=== PATIENT | male | born 1945 | race Caucasian/White ===

== ENCOUNTER 2018-02-13 04:17 | Inpatient (IN) | payer MEDICARE, OTHER ==
[~2018-02-13] VITALS: Ht 180.3 cm; Wt 65.8 kg
[2018-02-13] MEDS ORDERED: GABA-531 PO (04:26)
[2018-02-13] MEDS ORDERED: ALLO100T PO (04:26)
[2018-02-13] MEDS ORDERED: BISA5TAB12 PO (04:26)
[2018-02-13] MEDS ORDERED: TIOT185 IH (04:26)
[2018-02-13] MEDS ORDERED: SENN-175 PO (04:26)
[2018-02-13] MEDS ORDERED: MULT1CAP32 PO (04:26)
[2018-02-13] MEDS ORDERED: OXYC10TA93 PO (04:26)
[2018-02-13] MEDS ORDERED: ELVI1TAB3 PO (04:26)
[2018-02-13] MEDS ORDERED: DSS100 PO (04:26)
[2018-02-13] MEDS ORDERED: DULO60CA44 PO (04:26)
[2018-02-13] MEDS ORDERED: ACET-784 PO (04:26)
[2018-02-13 04:44] LABS: ABG A-A DIFF O2 622.2 mmHg (10-20.0); ABG BASE EXCESS -1.8 mmol/L (-2.0-3.0); ABG CARBOXYHEMOGLOBIN 1.5 % (0.0-1.5); ABG HCO3 23.2 mmol/L (22.0-26.0); ABG METHEMOGLOBIN 0.1 % (0.0-1.5); ABG OXYGEN SATURATION 89.1 % (95.0-98.0); ABG OXYHEMOGLOBIN 87.7 % (94.0-100.0); ABG PCO2 36 mmHg (35-45); ABG PH 7.415 (7.35-7.450); ABG TOTAL HEMOGLOBIN 16.3 G/dL (12.0-18.0); PO2, ARTERIAL BG 54.5 mmHg (75.0-83.0); SOURCE, BLOOD GAS ARTERIAL; TEMPERATURE, FAHRENHEIT, BG 98.6 FAHREN (96.0-98.6)
[2018-02-13 04:45] LABS: O2 DEVICE,BLOOD GAS BIPAP (ROOM AIR); SITE, BLOOD GAS LFT RADIAL
[2018-02-13] MEDS ORDERED: CefTRIAXone SODIUM 1 GM in DEXTROSE 5%-WATER 10 ML IV ONE (05:00)
[2018-02-13] MEDS ORDERED: SODIUM CHLORIDE 0.9% 2,000 ML IV ONE (05:00)
[2018-02-13 05:02] LABS: HEMATOCRIT 46.6 % (41-53); MEAN CORPUSCULAR HGB CONC 34.3 G/dL (31.0-37.0); MEAN CORPUSCULAR VOLUME 99 fL (80-100); PLATELET COUNT (AUTO) 218 K/uL (150-450); RED BLOOD CELL COUNT(AUTO) 4.71 MIL/uL (4.50-5.90)
[2018-02-13 05:28] LABS: CALCIUM, TOTAL 10.3 mg/dL (8.8-10.5); CREATININE 1.46 mg/dL (0.60-1.30); POTASSIUM 5.3 mmol/L (3.5-5.1)
[2018-02-13 05:38] LABS: ALBUMIN 2.4 g/dL (3.4-5.0); BILIRUBIN,TOTAL 0.7 mg/dL (0.1-1.0); TOTAL PROTEIN, SERUM 8.5 g/dL (6.4-8.2)
[2018-02-13] MEDS ORDERED: LEVOFLOXACIN 500 MG/D5% WATER 100 ML IV ONE (05:45)
[2018-02-13] MEDS ORDERED: IPRATROPIUM BROMIDE 0.5 MG/2.5 ML NEB SOLUTION NEB ONE (05:45)
[2018-02-13] MEDS ORDERED: ALBUTEROL SULFATE 2.5 MG/0.5 ML NEB SOLUTION NEB ONE (05:45)
[2018-02-13 05:50] LABS: BAND NEUTROPHILS % (MANUAL) 72 % (1-5); LYMPHOCYTES % (MANUAL) 9 % (22-44); MONOCYTES % (MANUAL) 13 % (2-9); SEGMENTED NEUTROPHILS % 6 % (40-70)
[2018-02-13] MEDS ORDERED: ONDANSETRON HCL 4 MG/2 ML VIAL IVP PRN (06:15)
[2018-02-13] MEDS ORDERED: 0.9% SODIUM CHLORIDE 10 ML SYRINGE IVP PRN (06:15)
[2018-02-13] MEDS ORDERED: VANCOMYCIN HCL 1 GM/D5% WATER 200 ML IV ONE (06:15)
[2018-02-13] MEDS ORDERED: SODIUM CHLORIDE 0.45% 1,000 ML IV ONE (06:15)
[2018-02-13] MEDS ORDERED: ACETAMINOPHEN 325 MG TABLET PO PRN (06:15)
[2018-02-13] MEDS ORDERED: MIDAZOLAM HCL 5 MG/ML VIAL ONE (06:22)
[2018-02-13] MEDS ORDERED: PROPOFOL 1000 MG/ISO-OSM 100 ML IV ONE (06:31)
[2018-02-13 06:40] LABS: LACTIC ACID 7.7 mmol/L (0.4-2.0)
[2018-02-13] MEDS ORDERED: SODIUM CHLORIDE 0.9% 1,000 ML IV ONE ×2 (06:45→08:15)
[2018-02-13] MEDS: IPRATROPIUM BROMIDE 0.5 MG/2.5 ML NEB SOLUTION NEB SCH ×3 (07:00→16:01)
[2018-02-13] MEDS: ALBUTEROL SULFATE 2.5 MG/0.5 ML NEB SOLUTION NEB SCH ×3 (07:00→16:01)
[2018-02-13 07:43] LABS: INFLUENZA TYPE A NEGATIVE FOR TYPE A (NEGATIVE); INFLUENZA TYPE B NEGATIVE FOR TYPE B (NEGATIVE)
[2018-02-13 07:56] LABS: ABG A-A DIFF O2 524.3 mmHg (10-20.0); ABG BASE EXCESS -1.4 mmol/L (-2.0-3.0); ABG CARBOXYHEMOGLOBIN 1.2 % (0.0-1.5); ABG HCO3 22.5 mmol/L (22.0-26.0); ABG METHEMOGLOBIN 0.2 % (0.0-1.5); ABG OXYGEN CONTENT 20.6 mL/dL (15.0-23.0); ABG OXYGEN SATURATION 98.3 % (95.0-98.0); ABG OXYHEMOGLOBIN 96.9 % (94.0-100.0); ABG PCO2 57 mmHg (35-45); PO2, ARTERIAL BG 131.3 mmHg (75.0-83.0); SOURCE, BLOOD GAS ARTERIAL
[2018-02-13 08:00] VITALS: BP 146/82
[2018-02-13 08:08] LABS: O2 DEVICE,BLOOD GAS VENTILATOR (ROOM AIR); PEEP,BG 5 cm H2O; SITE, BLOOD GAS RT RADIAL; VT, ABG 500 ml
[2018-02-13] MEDS ORDERED: *CLINICAL-LEVOFLOXACIN IVPB DOSING CLINICAL ONE (08:15)
[2018-02-13] MEDS ORDERED: BISACODYL 10 MG RECTAL RECTAL SUPPOSITORY PR PRN (08:15)
[2018-02-13] MEDS: DOCUSATE SODIUM 100 MG CAPSULE PO SCH ×2 (08:40→20:04)
[2018-02-13] MEDS ORDERED: HEPARIN SODIUM,PORCINE 5,000 UNITS/ML VIAL SQ SCH (09:00)
[2018-02-13] MEDS: PANTOPRAZOLE SODIUM 40 MG/VIAL IVP SCH (09:01)
[2018-02-13] MEDS: ACETAMINOPHEN 325 MG TABLET PO PRN ×3 (09:02→20:04)
[2018-02-13] MEDS ORDERED: PHENYLEPHRINE 200 MG/D5%-WATER 250 ML IV PRN (10:07)
[2018-02-13 11:26] LABS: ABG A-A DIFF O2 291.5 mmHg (10-20.0); ABG BASE EXCESS -1.6 mmol/L (-2.0-3.0); ABG HCO3 23.3 mmol/L (22.0-26.0); ABG METHEMOGLOBIN 0.1 % (0.0-1.5); ABG OXYGEN SATURATION 91.9 % (95.0-98.0); ABG OXYHEMOGLOBIN 90.9 % (94.0-100.0); ABG PCO2 37 mmHg (35-45); ABG PH 7.408 (7.35-7.450); ABG TOTAL HEMOGLOBIN 14.1 G/dL (12.0-18.0); SOURCE, BLOOD GAS ARTERIAL; TEMPERATURE, FAHRENHEIT, BG 98.6 FAHREN (96.0-98.6)
[2018-02-13 11:30] LABS: O2 DEVICE,BLOOD GAS VENTILATOR (ROOM AIR); PEEP,BG 5 cm H2O; SITE, BLOOD GAS RT RADIAL; VT, ABG 550 ml
[2018-02-13 12:00] VITALS: BP 96/56
[2018-02-13 12:18] LABS: INR 1.1 (0.9-1.1); PROTHROMBIN TIME 11.6 SEC (9.4-11.6)
[2018-02-13] MEDS ORDERED: INFLUENZA VIRUS VACCINE QVS 2017-18 (3YR+)/PF 60 MCG/0.5 ML SYRINGE IM ONE (15:45)
[2018-02-13 16:00] VITALS: BP 109/59
[2018-02-13] MEDS ORDERED: ETOMIDATE 2 MG/ML 10 ML VIAL IV ONE (16:59)
[2018-02-13] MEDS ORDERED: VECURONIUM BROMIDE 10 MG/VIAL IV ONE (16:59)
[2018-02-13] MEDS: PROPOFOL 1000 MG/ISO-OSM 100 ML IV PRN (17:02)
[2018-02-13] MEDS ORDERED: HEPARIN SODIUM,PORCINE 5,000 UNITS/ML VIAL IVP PRN (17:30)
[2018-02-13 18:06] LABS: HEMATOCRIT 39.5 % (41-53); HEMOGLOBIN 13.7 g/dL (13.5-17.5); MEAN CORPUSCULAR HEMOGLOBIN 34.1 pg (26.0-34.0); MEAN CORPUSCULAR HGB CONC 34.8 G/dL (31.0-37.0); MEAN CORPUSCULAR VOLUME 98 fL (80-100); PLATELET COUNT (AUTO) 199 K/uL (150-450); RED BLOOD CELL COUNT(AUTO) 4.03 MIL/uL (4.50-5.90)
[2018-02-13 18:11] LABS: INR 1.2 (0.9-1.1)
[2018-02-13 18:31] LABS: BAND NEUTROPHILS % (MANUAL) 73 % (1-5); LYMPHOCYTES % (MANUAL) 12 % (22-44); MONOCYTES % (MANUAL) 10 % (2-9); SEGMENTED NEUTROPHILS % 5 % (40-70)
[2018-02-13] MEDS: HEPARIN SODIUM 25000 UNITS/D5W 250 ML IV PRN (18:43)
[2018-02-13 20:00] VITALS: BP 90/61
[2018-02-13] MEDS: SODIUM CHLORIDE 0.9% 1,000 ML IV SCH (20:04)
[2018-02-14] VITALS (16 sets, daily range): BP systolic 84–126; BP diastolic 61–79
[2018-02-14] MEDS: HEPARIN SODIUM,PORCINE 5,000 UNITS/ML VIAL IVP PRN (01:51)
[2018-02-14 02:48] LABS: OCCULT BLOOD,GASTRIC FLUID NEGATIVE (NEGATIVE)
[2018-02-14] MEDS: PROPOFOL 1000 MG/ISO-OSM 100 ML IV PRN ×3 (04:02→15:31)
[2018-02-14] MEDS: CEFEPIME HCL 2 GM in DEXTROSE 5%-WATER 20 ML IV SCH (04:03)
[2018-02-14] MEDS ORDERED: SODIUM CHLORIDE 0.9% 250 ML IV ONE ×2 (04:10→11:11)
[2018-02-14] MEDS: SODIUM CHLORIDE 0.9% 1,000 ML IV SCH ×3 (05:09→22:35)
[2018-02-14] MEDS: LEVOFLOXACIN 500 MG/D5% WATER 100 ML IV SCH (05:10)
[2018-02-14 05:20] LABS: BASOPHILS % (AUTO) 0.1 % (0.0-2.0); EOSINOPHILS % (AUTO) 0.2 % (1.0-6.0); HEMATOCRIT 37.1 % (41-53); HEMOGLOBIN 12.6 g/dL (13.5-17.5); LYMPHOCYTES # (AUTO) 0.8 K/uL (1.0-4.8); LYMPHOCYTES % (AUTO) 6.6 % (22.0-44.0); MEAN CORPUSCULAR HEMOGLOBIN 33.6 pg (26.0-34.0); MEAN CORPUSCULAR VOLUME 99 fL (80-100); MONOCYTES # (AUTO) 0.4 K/uL (0.1-1.0); MONOCYTES % (AUTO) 3.6 % (2.0-9.0); NEUTROPHILS # (AUTO) 10.6 K/uL (1.8-7.7); PLATELET COUNT (AUTO) 188 K/uL (150-450); RED BLOOD CELL COUNT(AUTO) 3.75 MIL/uL (4.50-5.90); RED CELL DISTRIBUTION WIDTH 14.8 % (11.5-14.5)
[2018-02-14 05:58] LABS: ALANINE AMINOTRANSFERASE 27 U/L (12-78); ALBUMIN 1.6 g/dL (3.4-5.0); ALKALINE PHOSPHATASE 73 U/L (46-116); ANION GAP 9 mmol/L (8-16); ASPARTATE AMINOTRANSFERASE 15 U/L (15-37); BILIRUBIN,TOTAL 0.4 mg/dL (0.1-1.0); CALCIUM, TOTAL 8.5 mg/dL (8.8-10.5); CARBON DIOXIDE 24 mmol/L (22-29); CHLORIDE 104 mmol/L (98-107); GLOMERULAR FILTR. RATE CALC > 60 mL/min (>60); GLUCOSE,RANDOM 102 mg/dL (70-110); PHOSPHORUS 3.3 mg/dL (2.5-4.9); POTASSIUM 3.7 mmol/L (3.5-5.1); SODIUM SERUM 137 mmol/L (136-145); THYROID STIMULATING HORMONE 2.63 uIU/mL (0.36-3.74); TOTAL PROTEIN, SERUM 6.1 g/dL (6.4-8.2); UREA NITROGEN, BLOOD 25 mg/dL (7-18)
[2018-02-14 06:05] LABS: NEUTROPHILS % (AUTO) 89.5 % (40.0-70.0)
[2018-02-14 07:22] LABS: B-TYPE NATRIURETIC PEPTIDE 24 pg/mL (0-100)
[2018-02-14 08:38] LABS: ABG A-A DIFF O2 289.6 mmHg (10-20.0); ABG BASE EXCESS -2.4 mmol/L (-2.0-3.0); ABG CARBOXYHEMOGLOBIN 0.8 % (0.0-1.5); ABG HCO3 23.2 mmol/L (22.0-26.0); ABG METHEMOGLOBIN 0.1 % (0.0-1.5); ABG OXYGEN CONTENT 15.9 mL/dL (15.0-23.0); ABG OXYGEN SATURATION 95.2 % (95.0-98.0); ABG OXYHEMOGLOBIN 94.3 % (94.0-100.0); ABG PCO2 30 mmHg (35-45); ABG PH 7.472 (7.35-7.450); PO2, ARTERIAL BG 69.5 mmHg (75.0-83.0); SOURCE, BLOOD GAS ARTERIAL; TEMPERATURE, FAHRENHEIT, BG 98.6 FAHREN (96.0-98.6)
[2018-02-14 08:40] LABS: SITE, BLOOD GAS RT RADIAL
[2018-02-14 08:41] LABS: O2 DEVICE,BLOOD GAS VENTILATOR (ROOM AIR); PEEP,BG 5 cm H2O; VT, ABG 550 ml
[2018-02-14] MEDS: DOCUSATE SODIUM 100 MG CAPSULE PO SCH ×2 (09:00→20:10)
[2018-02-14] MEDS: PANTOPRAZOLE SODIUM 40 MG/VIAL IVP SCH (09:02)
[2018-02-14] MEDS: ACETAMINOPHEN 325 MG TABLET PO PRN ×3 (09:02→20:10)
[2018-02-14] MEDS: ELVITEG/COB/EMTRI/TENOF ALAFEN 150-150-200-10MG TABLET PO SCH (09:02)
[2018-02-14] MEDS: VANCOMYCIN HCL 1 GM/D5% WATER 200 ML IV SCH (09:02)
[2018-02-14] MEDS: HEPARIN SODIUM 25000 UNITS/D5W 250 ML IV PRN (12:44)
[2018-02-14] MEDS ORDERED: MIDAZOLAM HCL 2 MG/2 ML VIAL ONE (15:19)
[2018-02-14] MEDS ORDERED: FentaNYL CITRATE-PF 100 MCG/2 ML VIAL ONE (15:19)
[2018-02-14] MEDS ORDERED: HEPARIN SODIUM,PORCINE 1,000 UNITS/ML 10 ML VIAL ONE (15:19)
[2018-02-14] MEDS ORDERED: HEPARIN SODIUM 1000 UNITS/NS 500 ML ONE (15:19)
[2018-02-14] MEDS ORDERED: SODIUM CHLORIDE 0.9% 500 ML IV ONE (15:22)
[2018-02-14] MEDS ORDERED: ALTEPLASE 2 MG/VIAL IVCATH ONE (16:00)
[2018-02-14] MEDS ORDERED: IODIXANOL 320 MG/ML 100 ML VIAL ONE (16:59)
[2018-02-14] MEDS ORDERED: ALTEPLASE IV SCH ×5 (18:00→23:15)
[2018-02-14] MEDS ORDERED: SODIUM CHLORIDE 0.9% IV SCH ×5 (18:00→23:15)
[2018-02-14] MEDS: SODIUM CHLORIDE 0.9% 500 ML IV SCH (19:30)
[2018-02-15] VITALS (12 sets, daily range): BP systolic 83–117; BP diastolic 62–87
[2018-02-15] MEDS: SODIUM CHLORIDE 0.9% IV SCH ×8 (03:19→22:55)
[2018-02-15] MEDS: PROPOFOL 1000 MG/ISO-OSM 100 ML IV PRN ×4 (03:19→22:59)
[2018-02-15] MEDS: ALTEPLASE IV SCH ×8 (03:19→22:55)
[2018-02-15] MEDS ORDERED: ALTEPLASE IV SCH (04:00)
[2018-02-15] MEDS ORDERED: SODIUM CHLORIDE 0.9% IV SCH (04:00)
[2018-02-15] MEDS: SODIUM CHLORIDE 0.9% 1,000 ML IV SCH ×3 (05:27→22:56)
[2018-02-15] MEDS: CEFEPIME HCL 2 GM in DEXTROSE 5%-WATER 20 ML IV SCH (05:27)
[2018-02-15] MEDS: LEVOFLOXACIN 500 MG/D5% WATER 100 ML IV SCH (05:28)
[2018-02-15 05:57] LABS: ANION GAP 11 mmol/L (8-16); CALCIUM, TOTAL 8.5 mg/dL (8.8-10.5); CARBON DIOXIDE 22 mmol/L (22-29); CHLORIDE 108 mmol/L (98-107); CREATININE 0.72 mg/dL (0.60-1.30); GLOMERULAR FILTR. RATE CALC > 60 mL/min (>60); GLUCOSE,RANDOM 67 mg/dL (70-110); PHOSPHORUS 3.2 mg/dL (2.5-4.9); SODIUM SERUM 141 mmol/L (136-145); UREA NITROGEN, BLOOD 16 mg/dL (7-18)
[2018-02-15] MEDS: HEPARIN SODIUM 25000 UNITS/D5W 250 ML IV PRN ×2 (06:26→22:55)
[2018-02-15] MEDS: HEPARIN SODIUM,PORCINE 5,000 UNITS/ML VIAL IVP PRN (06:26)
[2018-02-15] MEDS: ELVITEG/COB/EMTRI/TENOF ALAFEN 150-150-200-10MG TABLET PO SCH (08:00)
[2018-02-15] MEDS: SODIUM CHLORIDE 0.9% 500 ML IV SCH (08:12)
[2018-02-15] MEDS: VANCOMYCIN HCL 1 GM/D5% WATER 200 ML IV SCH (08:12)
[2018-02-15] MEDS: PANTOPRAZOLE SODIUM 40 MG/VIAL IVP SCH (08:14)
[2018-02-15] MEDS: DOCUSATE SODIUM 100 MG CAPSULE PO SCH ×2 (08:15→21:00)
[2018-02-15] MEDS: POTASSIUM CHL 10 MEQ/WATER 50 ML IV SCH ×3 (08:39→12:51)
[2018-02-15 09:00] LABS: ABG A-A DIFF O2 158.3 mmHg (10-20.0); ABG BASE EXCESS -4.3 mmol/L (-2.0-3.0); ABG HCO3 21.6 mmol/L (22.0-26.0); ABG OXYGEN CONTENT 15.7 mL/dL (15.0-23.0); ABG OXYGEN SATURATION 97.6 % (95.0-98.0); ABG OXYHEMOGLOBIN 96.6 % (94.0-100.0); ABG PCO2 31 mmHg (35-45); ABG TOTAL HEMOGLOBIN 11.5 G/dL (12.0-18.0); O2 DEVICE,BLOOD GAS VENTILATOR (ROOM AIR); PEEP,BG 5 cm H2O; PO2, ARTERIAL BG 92.2 mmHg (75.0-83.0); SITE, BLOOD GAS RT RADIAL; SOURCE, BLOOD GAS ARTERIAL; TEMPERATURE, FAHRENHEIT, BG 97.3 FAHREN (96.0-98.6); VT, ABG 500 ml
[2018-02-15 09:30] LABS: BASOPHILS % (AUTO) 0.4 % (0.0-2.0); EOSINOPHILS % (AUTO) 0.5 % (1.0-6.0); HEMATOCRIT 33.7 % (41-53); HEMOGLOBIN 11.1 g/dL (13.5-17.5); LYMPHOCYTES # (AUTO) 0.9 K/uL (1.0-4.8); LYMPHOCYTES % (AUTO) 8.1 % (22.0-44.0); MEAN CORPUSCULAR HEMOGLOBIN 33.1 pg (26.0-34.0); MEAN CORPUSCULAR HGB CONC 33.1 G/dL (31.0-37.0); MEAN CORPUSCULAR VOLUME 100 fL (80-100); MONOCYTES # (AUTO) 0.5 K/uL (0.1-1.0); MONOCYTES % (AUTO) 4.3 % (2.0-9.0); NEUTROPHILS # (AUTO) 9.7 K/uL (1.8-7.7); PLATELET COUNT (AUTO) 190 K/uL (150-450); RED BLOOD CELL COUNT(AUTO) 3.37 MIL/uL (4.50-5.90); RED CELL DISTRIBUTION WIDTH 15.5 % (11.5-14.5)
[2018-02-15 10:03] LABS: NEUTROPHILS % (AUTO) 86.7 % (40.0-70.0)
[2018-02-15] MEDS ORDERED: FentaNYL CITRATE-PF 100 MCG/2 ML VIAL ONE (13:40)
[2018-02-15] MEDS ORDERED: MIDAZOLAM HCL 2 MG/2 ML VIAL ONE (13:40)
[2018-02-15 14:08] LABS: GLUCOSE,POINT OF CARE 90 MG/DL (70-110)
[2018-02-15] MEDS ORDERED: LIDOCAINE HCL/PF 1% 30 ML VIAL ONE ×2 (14:09→17:01)
[2018-02-15] MEDS ORDERED: IODIXANOL 320 MG/ML 100 ML VIAL ONE (14:09)
[2018-02-15] MEDS ORDERED: HEPARIN SODIUM 1000 UNITS/NS 500 ML ONE (14:10)
[2018-02-15] MEDS: CefTRIAXone SODIUM 2 GM in DEXTROSE 5%-WATER 20 ML IV SCH (18:17)
[2018-02-15 18:21] LABS: ANION GAP 11 mmol/L (8-16); CALCIUM, TOTAL 8.7 mg/dL (8.8-10.5); CARBON DIOXIDE 20 mmol/L (22-29); CHLORIDE 108 mmol/L (98-107); CREATININE 0.75 mg/dL (0.60-1.30); GLOMERULAR FILTR. RATE CALC > 60 mL/min (>60); GLUCOSE,RANDOM 73 mg/dL (70-110); POTASSIUM 3.7 mmol/L (3.5-5.1); SODIUM SERUM 139 mmol/L (136-145); UREA NITROGEN, BLOOD 12 mg/dL (7-18)
[2018-02-15 18:25] LABS: PHOSPHORUS 2.7 mg/dL (2.5-4.9)
[2018-02-16] VITALS (7 sets, daily range): BP systolic 96–117; BP diastolic 72–82
[2018-02-16] MEDS ORDERED: SODIUM CHLORIDE 0.9% 250 ML IV ONE (02:18)
[2018-02-16] MEDS: PROPOFOL 1000 MG/ISO-OSM 100 ML IV PRN ×3 (02:24→19:23)
[2018-02-16] MEDS: SODIUM CHLORIDE 0.9% IV SCH ×4 (02:24→11:03)
[2018-02-16] MEDS: ALTEPLASE IV SCH ×4 (02:24→11:03)
[2018-02-16] MEDS: SODIUM CHLORIDE 0.9% 500 ML IV SCH (03:15)
[2018-02-16 05:42] LABS: ANION GAP 12 mmol/L (8-16); CALCIUM, TOTAL 8.4 mg/dL (8.8-10.5); CARBON DIOXIDE 20 mmol/L (22-29); CHLORIDE 107 mmol/L (98-107); CREATININE 0.68 mg/dL (0.60-1.30); GLOMERULAR FILTR. RATE CALC > 60 mL/min (>60); GLUCOSE,RANDOM 64 mg/dL (70-110); POTASSIUM 3.1 mmol/L (3.5-5.1); SODIUM SERUM 139 mmol/L (136-145); UREA NITROGEN, BLOOD 9 mg/dL (7-18)
[2018-02-16] MEDS: SODIUM CHLORIDE 0.9% 1,000 ML IV SCH (06:21)
[2018-02-16] MEDS ORDERED: DEXTROSE 50%-WATER 25 GM/50 ML SYRINGE IVP ONE ×2 (07:45→08:00)
[2018-02-16 07:47] LABS: GLUCOSE,POINT OF CARE 54 MG/DL (70-110)
[2018-02-16] MEDS: ELVITEG/COB/EMTRI/TENOF ALAFEN 150-150-200-10MG TABLET PO SCH (08:00)
[2018-02-16] MEDS: DOCUSATE SODIUM 100 MG CAPSULE PO SCH ×2 (08:02→21:21)
[2018-02-16] MEDS: DEXTROSE 5%-0.45% SODIUM CHL 1,000 ML IV SCH ×2 (08:20→21:21)
[2018-02-16] MEDS: PANTOPRAZOLE SODIUM 40 MG/VIAL IVP SCH (08:20)
[2018-02-16] MEDS: HEPARIN SODIUM,PORCINE 5,000 UNITS/ML VIAL IVP PRN (08:21)
[2018-02-16 08:25] LABS: ABG A-A DIFF O2 151.9 mmHg (10-20.0); ABG BASE EXCESS -6.8 mmol/L (-2.0-3.0); ABG CARBOXYHEMOGLOBIN 0.5 % (0.0-1.5); ABG HCO3 20.1 mmol/L (22.0-26.0); ABG METHEMOGLOBIN 0.2 % (0.0-1.5); ABG OXYGEN CONTENT 16.5 mL/dL (15.0-23.0); ABG OXYGEN SATURATION 94.6 % (95.0-98.0); ABG OXYHEMOGLOBIN 93.9 % (94.0-100.0); ABG PCO2 26 mmHg (35-45); ABG PH 7.447 (7.35-7.450); ABG TOTAL HEMOGLOBIN 12.5 G/dL (12.0-18.0); O2 DEVICE,BLOOD GAS VENTILATOR (ROOM AIR); PEEP,BG 5 cm H2O; PO2, ARTERIAL BG 68.1 mmHg (75.0-83.0); SITE, BLOOD GAS RT RADIAL; SOURCE, BLOOD GAS ARTERIAL; TEMPERATURE, FAHRENHEIT, BG 98.2 FAHREN (96.0-98.6); VT, ABG 500 ml
[2018-02-16 08:27] LABS: GLUCOSE,POINT OF CARE 129 MG/DL (70-110)
[2018-02-16] MEDS ORDERED: POTASSIUM CHLORIDE 20 MEQ ER TABLET PO ONE (08:30)
[2018-02-16] MEDS ORDERED: POTASSIUM CHLORIDE 10% 40 MEQ/30 ML LIQUID UDCUP PO ONE (08:45)
[2018-02-16] MEDS: POTASSIUM CHL 10 MEQ/WATER 50 ML IV SCH ×2 (08:53→09:36)
[2018-02-16 14:38] LABS: FIBRINOGEN 589 mg/dL (200-400)
[2018-02-16] MEDS: HEPARIN SODIUM 25000 UNITS/D5W 250 ML IV PRN (14:48)
[2018-02-16] MEDS ORDERED: LIDOCAINE HCL/PF 2% 5 ML VIAL ONE (16:40)
[2018-02-16] MEDS ORDERED: LIDOCAINE HCL/PF 1% 30 ML VIAL ONE (16:41)
[2018-02-16] MEDS ORDERED: IODIXANOL 320 MG/ML 100 ML VIAL ONE ×2 (16:42→18:03)
[2018-02-16] MEDS ORDERED: HEPARIN SODIUM 1000 UNITS/NS 500 ML ONE (16:42)
[2018-02-16] MEDS: CefTRIAXone SODIUM 2 GM in DEXTROSE 5%-WATER 20 ML IV SCH (19:23)
[2018-02-17] VITALS (11 sets, daily range): BP systolic 89–118; BP diastolic 61–92
[2018-02-17] MEDS: PROPOFOL 1000 MG/ISO-OSM 100 ML IV PRN ×4 (02:09→20:30)
[2018-02-17 05:15] LABS: HEMATOCRIT 37.4 % (41-53); HEMOGLOBIN 12.6 g/dL (13.5-17.5); MEAN CORPUSCULAR HEMOGLOBIN 32.7 pg (26.0-34.0); MEAN CORPUSCULAR HGB CONC 33.6 G/dL (31.0-37.0); MEAN CORPUSCULAR VOLUME 98 fL (80-100); PLATELET COUNT (AUTO) 217 K/uL (150-450); RED BLOOD CELL COUNT(AUTO) 3.84 MIL/uL (4.50-5.90); RED CELL DISTRIBUTION WIDTH 15.7 % (11.5-14.5)
[2018-02-17 05:26] LABS: ANION GAP 13 mmol/L (8-16); CALCIUM, TOTAL 8.7 mg/dL (8.8-10.5); CARBON DIOXIDE 21 mmol/L (22-29); CHLORIDE 107 mmol/L (98-107); GLOMERULAR FILTR. RATE CALC > 60 mL/min (>60); GLUCOSE,RANDOM 134 mg/dL (70-110); PHOSPHORUS 2.8 mg/dL (2.5-4.9); POTASSIUM 3.3 mmol/L (3.5-5.1); SODIUM SERUM 141 mmol/L (136-145); UREA NITROGEN, BLOOD 6 mg/dL (7-18)
[2018-02-17 06:05] LABS: BAND NEUTROPHILS % (MANUAL) 7 % (1-5); BASOPHILS % (MANUAL) 1 % (0-2); EOSINOPHILS % (MANUAL) 1 % (1-6); LYMPHOCYTES % (MANUAL) 12 % (22-44); MONOCYTES % (MANUAL) 4 % (2-9); SEGMENTED NEUTROPHILS % 75 % (40-70)
[2018-02-17] MEDS: HEPARIN SODIUM 25000 UNITS/D5W 250 ML IV PRN ×2 (06:22→20:02)
[2018-02-17 06:48] LABS: GLUCOSE,POINT OF CARE 117 MG/DL (70-110)
[2018-02-17] MEDS: ELVITEG/COB/EMTRI/TENOF ALAFEN 150-150-200-10MG TABLET PO SCH (07:55)
[2018-02-17] MEDS: DEXTROSE 5%-0.45% SODIUM CHL 1,000 ML IV SCH ×2 (08:07→23:51)
[2018-02-17] MEDS: PANTOPRAZOLE SODIUM 40 MG/VIAL IVP SCH (08:07)
[2018-02-17] MEDS: DOCUSATE SODIUM 100 MG CAPSULE PO SCH ×2 (08:07→20:43)
[2018-02-17 08:09] LABS: ABG A-A DIFF O2 143.7 mmHg (10-20.0); ABG BASE EXCESS -5.7 mmol/L (-2.0-3.0); ABG HCO3 20.8 mmol/L (22.0-26.0); ABG METHEMOGLOBIN 0.2 % (0.0-1.5); ABG OXYGEN CONTENT 17.6 mL/dL (15.0-23.0); ABG OXYGEN SATURATION 95.3 % (95.0-98.0); ABG OXYHEMOGLOBIN 94.2 % (94.0-100.0); ABG PCO2 29 mmHg (35-45); ABG PH 7.426 (7.35-7.450); ABG TOTAL HEMOGLOBIN 13.3 G/dL (12.0-18.0); PO2, ARTERIAL BG 72.1 mmHg (75.0-83.0); SOURCE, BLOOD GAS ARTERIAL; TEMPERATURE, FAHRENHEIT, BG 98.6 FAHREN (96.0-98.6)
[2018-02-17 08:11] LABS: O2 DEVICE,BLOOD GAS VENTILATOR (ROOM AIR); SITE, BLOOD GAS RT RADIAL; VT, ABG 500 ml
[2018-02-17 08:12] LABS: PEEP,BG 5 cm H2O
[2018-02-17] MEDS ORDERED: POTASSIUM CHLORIDE 10 MEQ ER TABLET PO ONE (09:00)
[2018-02-17] MEDS ORDERED: POTASSIUM CHLORIDE 10% 40 MEQ/30 ML LIQUID UDCUP NG PRN (10:15)
[2018-02-17] MEDS: CefTRIAXone SODIUM 2 GM in DEXTROSE 5%-WATER 20 ML IV SCH (17:06)
[2018-02-18] VITALS: BP 91/54
[2018-02-18] MEDS: PROPOFOL 1000 MG/ISO-OSM 100 ML IV PRN ×4 (03:03→22:32)
[2018-02-18 04:00] VITALS: BP 103/66
[2018-02-18 05:44] LABS: ANION GAP 8 mmol/L (8-16); CALCIUM, TOTAL 8.6 mg/dL (8.8-10.5); CARBON DIOXIDE 26 mmol/L (22-29); CHLORIDE 108 mmol/L (98-107); CREATININE 0.75 mg/dL (0.60-1.30); GLOMERULAR FILTR. RATE CALC > 60 mL/min (>60); GLUCOSE,RANDOM 124 mg/dL (70-110); POTASSIUM 3.6 mmol/L (3.5-5.1); SODIUM SERUM 142 mmol/L (136-145); UREA NITROGEN, BLOOD 8 mg/dL (7-18)
[2018-02-18] MEDS: HEPARIN SODIUM,PORCINE 5,000 UNITS/ML VIAL IVP PRN ×2 (05:56→14:48)
[2018-02-18] MEDS: ELVITEG/COB/EMTRI/TENOF ALAFEN 150-150-200-10MG TABLET PO SCH (07:41)
[2018-02-18 08:00] VITALS: BP 103/73
[2018-02-18] MEDS: DOCUSATE SODIUM 100 MG CAPSULE PO SCH ×2 (08:06→20:00)
[2018-02-18] MEDS: PANTOPRAZOLE SODIUM 40 MG/VIAL IVP SCH (08:06)
[2018-02-18 08:19] LABS: ABG A-A DIFF O2 128.4 mmHg (10-20.0); ABG BASE EXCESS -0.8 mmol/L (-2.0-3.0); ABG CARBOXYHEMOGLOBIN 0.7 % (0.0-1.5); ABG HCO3 24.2 mmol/L (22.0-26.0); ABG METHEMOGLOBIN 0.1 % (0.0-1.5); ABG OXYGEN CONTENT 16.9 mL/dL (15.0-23.0); ABG OXYGEN SATURATION 96.6 % (95.0-98.0); ABG OXYHEMOGLOBIN 95.8 % (94.0-100.0); ABG PCO2 35 mmHg (35-45); ABG PH 7.439 (7.35-7.450); ABG TOTAL HEMOGLOBIN 12.5 G/dL (12.0-18.0); O2 DEVICE,BLOOD GAS VENTILATOR (ROOM AIR); PEEP,BG 5 cm H2O; PO2, ARTERIAL BG 80.3 mmHg (75.0-83.0); SITE, BLOOD GAS RT RADIAL; SOURCE, BLOOD GAS ARTERIAL; TEMPERATURE, FAHRENHEIT, BG 98.5 FAHREN (96.0-98.6); VT, ABG 500 ml
[2018-02-18] MEDS: POTASSIUM CHL 10 MEQ/WATER 50 ML IV PRN ×3 (09:56→11:03)
[2018-02-18] MEDS: HEPARIN SODIUM 25000 UNITS/D5W 250 ML IV PRN (10:37)
[2018-02-18 12:00] VITALS: BP 121/92
[2018-02-18] MEDS: DEXTROSE 5%-0.45% SODIUM CHL 1,000 ML IV SCH (12:27)
[2018-02-18 13:29] LABS: BASOPHILS % (AUTO) 0.6 % (0.0-2.0); EOSINOPHILS % (AUTO) 1.1 % (1.0-6.0); HEMOGLOBIN 12.3 g/dL (13.5-17.5); MEAN CORPUSCULAR HEMOGLOBIN 33.2 pg (26.0-34.0); MEAN CORPUSCULAR HGB CONC 34.1 G/dL (31.0-37.0); MEAN CORPUSCULAR VOLUME 97 fL (80-100); MONOCYTES # (AUTO) 0.5 K/uL (0.1-1.0); MONOCYTES % (AUTO) 5.7 % (2.0-9.0); NEUTROPHILS % (AUTO) 80.6 % (40.0-70.0); PLATELET COUNT (AUTO) 237 K/uL (150-450); RED BLOOD CELL COUNT(AUTO) 3.69 MIL/uL (4.50-5.90); RED CELL DISTRIBUTION WIDTH 15.7 % (11.5-14.5)
[2018-02-18 16:00] VITALS: BP 98/69
[2018-02-18] MEDS: CefTRIAXone SODIUM 2 GM in DEXTROSE 5%-WATER 20 ML IV SCH (17:28)
[2018-02-18 20:00] VITALS: BP 94/66
[2018-02-19] VITALS: BP 107/72
[2018-02-19] MEDS: HEPARIN SODIUM 25000 UNITS/D5W 250 ML IV PRN ×2 (00:41→13:32)
[2018-02-19] MEDS: DEXTROSE 5%-0.45% SODIUM CHL 1,000 ML IV SCH ×2 (01:53→16:21)
[2018-02-19 04:00] VITALS: BP_SYST 108; BP_SYST 99; BP_DIAS 60; BP_DIAS 71
[2018-02-19 05:32] LABS: BASOPHILS % (AUTO) 1.4 % (0.0-2.0); EOSINOPHILS % (AUTO) 1.5 % (1.0-6.0); HEMATOCRIT 33.4 % (41-53); HEMOGLOBIN 11.5 g/dL (13.5-17.5); LYMPHOCYTES # (AUTO) 1.3 K/uL (1.0-4.8); LYMPHOCYTES % (AUTO) 14.7 % (22.0-44.0); MEAN CORPUSCULAR HEMOGLOBIN 33.9 pg (26.0-34.0); MEAN CORPUSCULAR HGB CONC 34.4 G/dL (31.0-37.0); MEAN CORPUSCULAR VOLUME 99 fL (80-100); MONOCYTES # (AUTO) 0.5 K/uL (0.1-1.0); MONOCYTES % (AUTO) 5.7 % (2.0-9.0); NEUTROPHILS # (AUTO) 6.6 K/uL (1.8-7.7); NEUTROPHILS % (AUTO) 76.7 % (40.0-70.0); PLATELET COUNT (AUTO) 243 K/uL (150-450); RED BLOOD CELL COUNT(AUTO) 3.38 MIL/uL (4.50-5.90); RED CELL DISTRIBUTION WIDTH 15.7 % (11.5-14.5)
[2018-02-19] MEDS: PROPOFOL 1000 MG/ISO-OSM 100 ML IV PRN ×3 (05:44→18:37)
[2018-02-19 06:24] LABS: ALANINE AMINOTRANSFERASE 30 U/L (12-78); ALKALINE PHOSPHATASE 66 U/L (46-116); ANION GAP 9 mmol/L (8-16); ASPARTATE AMINOTRANSFERASE 25 U/L (15-37); BILIRUBIN,TOTAL 0.2 mg/dL (0.1-1.0); CALCIUM, TOTAL 8.6 mg/dL (8.8-10.5); CARBON DIOXIDE 25 mmol/L (22-29); CHLORIDE 106 mmol/L (98-107); CREATININE 0.65 mg/dL (0.60-1.30); GLOMERULAR FILTR. RATE CALC > 60 mL/min (>60); GLUCOSE,RANDOM 130 mg/dL (70-110); POTASSIUM 4.1 mmol/L (3.5-5.1); SODIUM SERUM 140 mmol/L (136-145); TOTAL PROTEIN, SERUM 6.5 g/dL (6.4-8.2); UREA NITROGEN, BLOOD 11 mg/dL (7-18)
[2018-02-19 07:00] LABS: ALBUMIN 1.3 g/dL (3.4-5.0)
[2018-02-19 08:00] VITALS: BP 95/62
[2018-02-19] MEDS: ELVITEG/COB/EMTRI/TENOF ALAFEN 150-150-200-10MG TABLET PO SCH (08:12)
[2018-02-19] MEDS: PANTOPRAZOLE SODIUM 40 MG/VIAL IVP SCH (08:12)
[2018-02-19] MEDS: DOCUSATE SODIUM 100 MG CAPSULE PO SCH ×2 (08:12→20:18)
[2018-02-19 12:00] VITALS: BP 98/71
[2018-02-19 16:00] VITALS: BP 95/73
[2018-02-19] MEDS: CefTRIAXone SODIUM 2 GM in DEXTROSE 5%-WATER 20 ML IV SCH (17:00)
[2018-02-19 20:00] VITALS: BP 96/64
[2018-02-20] VITALS: BP 97/69
[2018-02-20] MEDS: HEPARIN SODIUM 25000 UNITS/D5W 250 ML IV PRN ×2 (01:32→11:45)
[2018-02-20 04:00] VITALS: BP 85/65
[2018-02-20] MEDS: PROPOFOL 1000 MG/ISO-OSM 100 ML IV PRN ×3 (04:45→11:46)
[2018-02-20] MEDS: DEXTROSE 5%-0.45% SODIUM CHL 1,000 ML IV SCH ×2 (06:06→17:59)
[2018-02-20] MEDS: ELVITEG/COB/EMTRI/TENOF ALAFEN 150-150-200-10MG TABLET PO SCH (07:56)
[2018-02-20 08:00] VITALS: BP 97/72
[2018-02-20] MEDS: PANTOPRAZOLE SODIUM 40 MG/VIAL IVP SCH (08:20)
[2018-02-20] MEDS: DOCUSATE SODIUM 100 MG CAPSULE PO SCH ×2 (08:21→20:31)
[2018-02-20 08:49] LABS: SOURCE, BLOOD GAS ARTERIAL; TEMPERATURE, FAHRENHEIT, BG 98.6 FAHREN (96.0-98.6)
[2018-02-20 08:52] LABS: ABG A-A DIFF O2 127.3 mmHg (10-20.0); ABG BASE EXCESS 3.6 mmol/L (-2.0-3.0); ABG CARBOXYHEMOGLOBIN 0.9 % (0.0-1.5); ABG HCO3 27.7 mmol/L (22.0-26.0); ABG OXYGEN CONTENT 17.7 mL/dL (15.0-23.0); ABG OXYGEN SATURATION 96.5 % (95.0-98.0); ABG OXYHEMOGLOBIN 95.6 % (94.0-100.0); ABG PCO2 37 mmHg (35-45); ABG PH 7.481 (7.35-7.450); ABG TOTAL HEMOGLOBIN 13.1 G/dL (12.0-18.0); PO2, ARTERIAL BG 79.1 mmHg (75.0-83.0)
[2018-02-20 08:55] LABS: O2 DEVICE,BLOOD GAS VENTILATOR (ROOM AIR); PEEP,BG 5 cm H2O; SITE, BLOOD GAS LFT RADIAL; VT, ABG 500 ml
[2018-02-20 12:00] VITALS: BP 94/61
[2018-02-20 15:35] LABS: ABG A-A DIFF O2 135.2 mmHg (10-20.0); ABG BASE EXCESS 3.2 mmol/L (-2.0-3.0); ABG CARBOXYHEMOGLOBIN 0.6 % (0.0-1.5); ABG HCO3 27.8 mmol/L (22.0-26.0); ABG METHEMOGLOBIN 0.1 % (0.0-1.5); ABG OXYGEN CONTENT 16.9 mL/dL (15.0-23.0); ABG OXYGEN SATURATION 96.7 % (95.0-98.0); ABG PCO2 31 mmHg (35-45); ABG PH 7.538 (7.35-7.450); ABG TOTAL HEMOGLOBIN 12.5 G/dL (12.0-18.0); PO2, ARTERIAL BG 78.3 mmHg (75.0-83.0); SOURCE, BLOOD GAS ARTERIAL; TEMPERATURE, FAHRENHEIT, BG 98.6 FAHREN (96.0-98.6)
[2018-02-20 15:37] LABS: O2 DEVICE,BLOOD GAS VENTILATOR (ROOM AIR); SITE, BLOOD GAS LFT RADIAL; VENT MODE, BG CPAP (ROOM AIR)
[2018-02-20 15:38] LABS: PEEP,BG 0 cm H2O; PRESSURE SUPPORT, BG 8 cm H2O
[2018-02-20 16:00] VITALS: BP 116/74
[2018-02-20] MEDS: CefTRIAXone SODIUM 2 GM in DEXTROSE 5%-WATER 20 ML IV SCH (17:59)
[2018-02-20] MEDS: ALBUTEROL SULFATE 2.5 MG/0.5 ML NEB SOLUTION NEB SCH ×2 (19:49→23:02)
[2018-02-20] MEDS: IPRATROPIUM BROMIDE 0.5 MG/2.5 ML NEB SOLUTION NEB SCH ×2 (19:49→23:02)
[2018-02-20 20:00] VITALS: BP 121/76
[2018-02-21] VITALS: BP 95/60
[2018-02-21] MEDS: HEPARIN SODIUM 25000 UNITS/D5W 250 ML IV PRN ×2 (02:02→14:26)
[2018-02-21] MEDS: ALBUTEROL SULFATE 2.5 MG/0.5 ML NEB SOLUTION NEB SCH ×6 (03:36→22:58)
[2018-02-21] MEDS: IPRATROPIUM BROMIDE 0.5 MG/2.5 ML NEB SOLUTION NEB SCH ×6 (03:36→22:58)
[2018-02-21 04:00] VITALS: BP 114/77
[2018-02-21 08:00] VITALS: BP 105/65
[2018-02-21] MEDS: ELVITEG/COB/EMTRI/TENOF ALAFEN 150-150-200-10MG TABLET PO SCH (08:00)
[2018-02-21] MEDS: DOCUSATE SODIUM 100 MG CAPSULE PO SCH ×2 (08:03→20:26)
[2018-02-21] MEDS: DEXTROSE 5%-0.45% SODIUM CHL 1,000 ML IV SCH ×2 (08:03→20:26)
[2018-02-21] MEDS: PANTOPRAZOLE SODIUM 40 MG/VIAL IVP SCH (08:03)
[2018-02-21 12:00] VITALS: BP 116/69
[2018-02-21] MEDS ORDERED: SODIUM CHLORIDE 0.9% 500 ML IV ONE (13:06)
[2018-02-21 15:58] VITALS: BP 114/81
[2018-02-21] MEDS: CefTRIAXone SODIUM 2 GM in DEXTROSE 5%-WATER 20 ML IV SCH (18:15)
[2018-02-21 19:46] VITALS: BP 122/77
[2018-02-22] VITALS (7 sets, daily range): BP systolic 105–123; BP diastolic 62–77
[2018-02-22] MEDS: IPRATROPIUM BROMIDE 0.5 MG/2.5 ML NEB SOLUTION NEB SCH ×6 (02:34→18:44)
[2018-02-22] MEDS: ALBUTEROL SULFATE 2.5 MG/0.5 ML NEB SOLUTION NEB SCH (02:34)
[2018-02-22] MEDS: PANTOPRAZOLE SODIUM 40 MG/VIAL IVP SCH (08:03)
[2018-02-22] MEDS: ELVITEG/COB/EMTRI/TENOF ALAFEN 150-150-200-10MG TABLET PO SCH (08:09)
[2018-02-22] MEDS: DEXTROSE 5%-0.45% SODIUM CHL 1,000 ML IV SCH ×2 (08:10→23:31)
[2018-02-22] MEDS: DOCUSATE SODIUM 100 MG CAPSULE PO SCH ×2 (08:23→20:33)
[2018-02-22] MEDS ORDERED: ALBUTEROL SULFATE 2.5 MG/0.5 ML NEB SOLUTION NEB PRN (14:30)
[2018-02-22] MEDS: CefTRIAXone SODIUM 2 GM in DEXTROSE 5%-WATER 20 ML IV SCH (17:04)
[2018-02-22] MEDS: HEPARIN SODIUM 25000 UNITS/D5W 250 ML IV PRN (19:04)
[2018-02-22] MEDS: ACETAMINOPHEN 325 MG TABLET PO PRN (23:35)
[2018-02-23 04:30] VITALS: BP 139/89
[2018-02-23] MEDS: IPRATROPIUM BROMIDE 0.5 MG/2.5 ML NEB SOLUTION NEB SCH ×4 (07:00→23:00)
[2018-02-23 07:10] VITALS: BP 136/87
[2018-02-23] MEDS: ELVITEG/COB/EMTRI/TENOF ALAFEN 150-150-200-10MG TABLET PO SCH (08:16)
[2018-02-23] MEDS: DOCUSATE SODIUM 100 MG CAPSULE PO SCH ×2 (08:18→21:29)
[2018-02-23] MEDS: PANTOPRAZOLE SODIUM 40 MG/VIAL IVP SCH (08:18)
[2018-02-23] MEDS: HEPARIN SODIUM,PORCINE 5,000 UNITS/ML VIAL IVP PRN (10:02)
[2018-02-23] MEDS: HEPARIN SODIUM 25000 UNITS/D5W 250 ML IV PRN (10:32)
[2018-02-23 11:25] VITALS: BP 139/92
[2018-02-23] MEDS: DEXTROSE 5%-0.45% SODIUM CHL 1,000 ML IV SCH (13:26)
[2018-02-23 15:01] VITALS: BP 118/75
[2018-02-23] MEDS: ACETYLCYSTEINE 10% 100 MG/ML 4 ML NEB SOLUTION NEB SCH ×2 (15:16→21:00)
[2018-02-23] MEDS: DULoxetine HCL 60 MG CAPSULE PO SCH (15:21)
[2018-02-23] MEDS: CefTRIAXone SODIUM 2 GM in DEXTROSE 5%-WATER 20 ML IV SCH (17:40)
[2018-02-23 21:32] VITALS: BP 105/67
[2018-02-23] MEDS: ACETAMINOPHEN 325 MG TABLET PO PRN (21:36)
[2018-02-24 00:20] VITALS: BP 104/73
[2018-02-24] MEDS: HEPARIN SODIUM 25000 UNITS/D5W 250 ML IV PRN (01:46)
[2018-02-24] MEDS: IPRATROPIUM BROMIDE 0.5 MG/2.5 ML NEB SOLUTION NEB SCH ×6 (03:00→23:00)
[2018-02-24] MEDS: DEXTROSE 5%-0.45% SODIUM CHL 1,000 ML IV SCH ×2 (03:49→15:43)
[2018-02-24 03:52] VITALS: BP 126/87
[2018-02-24] MEDS: DULoxetine HCL 60 MG CAPSULE PO SCH (07:59)
[2018-02-24] MEDS: PANTOPRAZOLE SODIUM 40 MG/VIAL IVP SCH (07:59)
[2018-02-24] MEDS: ELVITEG/COB/EMTRI/TENOF ALAFEN 150-150-200-10MG TABLET PO SCH (07:59)
[2018-02-24] MEDS: DOCUSATE SODIUM 100 MG CAPSULE PO SCH ×3 (07:59→20:02)
[2018-02-24 08:47] LABS: BASOPHILS % (AUTO) 0.9 % (0.0-2.0); EOSINOPHILS % (AUTO) 1.1 % (1.0-6.0); HEMATOCRIT 32.6 % (41-53); LYMPHOCYTES # (AUTO) 1.1 K/uL (1.0-4.8); LYMPHOCYTES % (AUTO) 14.6 % (22.0-44.0); MEAN CORPUSCULAR HEMOGLOBIN 33.2 pg (26.0-34.0); MEAN CORPUSCULAR HGB CONC 33.9 G/dL (31.0-37.0); MEAN CORPUSCULAR VOLUME 98 fL (80-100); MONOCYTES # (AUTO) 0.6 K/uL (0.1-1.0); MONOCYTES % (AUTO) 7.9 % (2.0-9.0); NEUTROPHILS # (AUTO) 5.7 K/uL (1.8-7.7); NEUTROPHILS % (AUTO) 75.5 % (40.0-70.0); PLATELET COUNT (AUTO) 273 K/uL (150-450); RED BLOOD CELL COUNT(AUTO) 3.32 MIL/uL (4.50-5.90); RED CELL DISTRIBUTION WIDTH 14.7 % (11.5-14.5)
[2018-02-24] MEDS: ACETYLCYSTEINE 10% 100 MG/ML 4 ML NEB SOLUTION NEB SCH ×3 (09:00→19:43)
[2018-02-24 09:10] LABS: ANION GAP 9 mmol/L (8-16); CALCIUM, TOTAL 7.8 mg/dL (8.8-10.5); CARBON DIOXIDE 23 mmol/L (22-29); CHLORIDE 100 mmol/L (98-107); CREATININE 0.65 mg/dL (0.60-1.30); GLOMERULAR FILTR. RATE CALC > 60 mL/min (>60); SODIUM SERUM 132 mmol/L (136-145); UREA NITROGEN, BLOOD 10 mg/dL (7-18)
[2018-02-24 09:20] LABS: POTASSIUM 2.7 mmol/L (3.5-5.1)
[2018-02-24 09:21] LABS: GLUCOSE,RANDOM 419 mg/dL (70-110)
[2018-02-24] MEDS ORDERED: POTASSIUM CHL 10 MEQ/WATER 50 ML IV PRN (11:15)
[2018-02-24] MEDS ORDERED: POTASSIUM CHLORIDE 20 MEQ ER TABLET PO PRN (11:15)
[2018-02-24] MEDS: POTASSIUM CHL 10 MEQ/WATER 50 ML IV PRN ×7 (11:50→22:52)
[2018-02-24] MEDS: CefTRIAXone SODIUM 2 GM in DEXTROSE 5%-WATER 20 ML IV SCH (17:33)
[2018-02-24 19:08] VITALS: BP 109/73
[2018-02-24 19:48] LABS: GLUCOMETER DEV NAME(LOC) 5N 2S; GLUCOSE,POINT OF CARE 122 MG/DL (70-110)
[2018-02-24 23:19] VITALS: BP 111/69
[2018-02-25] MEDS: IPRATROPIUM BROMIDE 0.5 MG/2.5 ML NEB SOLUTION NEB SCH ×6 (03:00→23:00)
[2018-02-25 04:09] VITALS: BP 114/78
[2018-02-25] MEDS: DEXTROSE 5%-0.45% SODIUM CHL 1,000 ML IV SCH ×2 (05:53→18:48)
[2018-02-25 06:30] LABS: APPEARANCE,URINE CLOUDY (CLEAR); BILIRUBIN,URINE NEGATIVE (NEGATIVE); GLUCOSE, URINE (UA) NEGATIVE (NEGATIVE); KETONES,URINE NEGATIVE (NEGATIVE); LEUKOCYTE ESTERASE ,URINE NEGATIVE (NEGATIVE); NITRATE,URINE POSITIVE (NEGATIVE); OCCULT BLOOD,URINE LARGE (NEGATIVE); PH,URINE 7.5 (5.0-8.0); PROTEIN,URINE NEGATIVE (NEGATIVE); UROBILINOGEN,URINE 0.2 mg/dL (<=1.0)
[2018-02-25 06:45] LABS: BACTERIA,URINE Moderate /HPF (None Seen); SQUAMOUS EPITHELIAL CELL,UR Few /LPF (None Seen)
[2018-02-25 07:14] VITALS: BP 122/76
[2018-02-25] MEDS: ELVITEG/COB/EMTRI/TENOF ALAFEN 150-150-200-10MG TABLET PO SCH ×2 (08:00→10:31)
[2018-02-25] MEDS: ACETYLCYSTEINE 10% 100 MG/ML 4 ML NEB SOLUTION NEB SCH ×3 (09:00→19:09)
[2018-02-25] MEDS: PANTOPRAZOLE SODIUM 40 MG/VIAL IVP SCH (10:14)
[2018-02-25] MEDS: DOCUSATE SODIUM 100 MG CAPSULE PO SCH ×2 (10:14→21:00)
[2018-02-25] MEDS: DULoxetine HCL 60 MG CAPSULE PO SCH (10:14)
[2018-02-25 10:35] LABS: BASOPHILS % (AUTO) 0.9 % (0.0-2.0); EOSINOPHILS % (AUTO) 1.2 % (1.0-6.0); HEMOGLOBIN 12.5 g/dL (13.5-17.5); LYMPHOCYTES % (AUTO) 13.8 % (22.0-44.0); MEAN CORPUSCULAR HEMOGLOBIN 33.4 pg (26.0-34.0); MEAN CORPUSCULAR HGB CONC 34.7 G/dL (31.0-37.0); MEAN CORPUSCULAR VOLUME 96 fL (80-100); MONOCYTES # (AUTO) 0.7 K/uL (0.1-1.0); MONOCYTES % (AUTO) 9.2 % (2.0-9.0); NEUTROPHILS # (AUTO) 5.5 K/uL (1.8-7.7); NEUTROPHILS % (AUTO) 74.9 % (40.0-70.0); PLATELET COUNT (AUTO) 318 K/uL (150-450); RED BLOOD CELL COUNT(AUTO) 3.75 MIL/uL (4.50-5.90); RED CELL DISTRIBUTION WIDTH 14.9 % (11.5-14.5)
[2018-02-25 10:48] LABS: ANION GAP 9 mmol/L (8-16); CALCIUM, TOTAL 8.8 mg/dL (8.8-10.5); CARBON DIOXIDE 25 mmol/L (22-29); CHLORIDE 103 mmol/L (98-107); CREATININE 0.69 mg/dL (0.60-1.30); GLOMERULAR FILTR. RATE CALC > 60 mL/min (>60); GLUCOSE,RANDOM 86 mg/dL (70-110); POTASSIUM 3.5 mmol/L (3.5-5.1); SODIUM SERUM 137 mmol/L (136-145); UREA NITROGEN, BLOOD 7 mg/dL (7-18)
[2018-02-25 11:17] VITALS: BP 112/66
[2018-02-25] MEDS ORDERED: HEPARIN SODIUM 25000 UNITS/D5W 250 ML IV PRN (11:45)
[2018-02-25] MEDS ORDERED: HEPARIN SODIUM,PORCINE 5,000 UNITS/ML VIAL IVP PRN (11:45)
[2018-02-25] MEDS ORDERED: POTASSIUM CHLORIDE 20 MEQ ER TABLET PO PRN (12:00)
[2018-02-25 12:36] LABS: INR 1.1 (0.9-1.1); PROTHROMBIN TIME 11.6 SEC (9.4-11.6)
[2018-02-25] MEDS: POTASSIUM CHL 10 MEQ/WATER 50 ML IV PRN ×3 (12:52→16:48)
[2018-02-25] MEDS ORDERED: SODIUM CHLORIDE 0.9% 100 ML ONE (12:53)
[2018-02-25 14:43] VITALS: BP 112/56
[2018-02-25] MEDS: HEPARIN SODIUM 25000 UNITS/D5W 250 ML IV PRN (14:45)
[2018-02-25] MEDS: CefTRIAXone SODIUM 2 GM in DEXTROSE 5%-WATER 20 ML IV SCH (18:49)
[2018-02-25 19:52] VITALS: BP 108/76
[2018-02-26] MEDS: IPRATROPIUM BROMIDE 0.5 MG/2.5 ML NEB SOLUTION NEB SCH ×6 (03:00→23:00)
[2018-02-26 05:36] VITALS: BP 121/79
[2018-02-26 06:24] LABS: BASOPHILS % (AUTO) 0.7 % (0.0-2.0); EOSINOPHILS % (AUTO) 1.3 % (1.0-6.0); HEMATOCRIT 37.1 % (41-53); HEMOGLOBIN 13.1 g/dL (13.5-17.5); LYMPHOCYTES # (AUTO) 1.3 K/uL (1.0-4.8); MEAN CORPUSCULAR HEMOGLOBIN 34.4 pg (26.0-34.0); MEAN CORPUSCULAR HGB CONC 35.2 G/dL (31.0-37.0); MEAN CORPUSCULAR VOLUME 98 fL (80-100); MONOCYTES # (AUTO) 0.8 K/uL (0.1-1.0); MONOCYTES % (AUTO) 9.9 % (2.0-9.0); NEUTROPHILS # (AUTO) 5.6 K/uL (1.8-7.7); NEUTROPHILS % (AUTO) 72.1 % (40.0-70.0); PLATELET COUNT (AUTO) 315 K/uL (150-450)
[2018-02-26 07:35] VITALS: BP 114/46
[2018-02-26] MEDS: ELVITEG/COB/EMTRI/TENOF ALAFEN 150-150-200-10MG TABLET PO SCH (08:00)
[2018-02-26] MEDS: DEXTROSE 5%-0.45% SODIUM CHL 1,000 ML IV SCH ×2 (08:19→21:02)
[2018-02-26] MEDS: DULoxetine HCL 60 MG CAPSULE PO SCH (09:00)
[2018-02-26] MEDS: DOCUSATE SODIUM 100 MG CAPSULE PO SCH ×2 (09:00→21:02)
[2018-02-26] MEDS: PANTOPRAZOLE SODIUM 40 MG/VIAL IVP SCH (09:00)
[2018-02-26] MEDS: ACETYLCYSTEINE 10% 100 MG/ML 4 ML NEB SOLUTION NEB SCH ×3 (09:00→19:40)
[2018-02-26] MEDS: MULTIVITAMINS WITH MINERALS, THERAPEUTIC TABLET PO SCH (09:00)
[2018-02-26] MEDS: HEPARIN SODIUM,PORCINE 5,000 UNITS/ML VIAL IVP PRN ×2 (14:10→21:43)
[2018-02-26 14:41] VITALS: BP 100/71
[2018-02-26] MEDS: CefTRIAXone SODIUM 2 GM in DEXTROSE 5%-WATER 20 ML IV SCH (18:49)
[2018-02-26 20:07] VITALS: BP 142/75
[2018-02-26] MEDS: HEPARIN SODIUM 25000 UNITS/D5W 250 ML IV PRN (21:46)
[2018-02-27 00:10] VITALS: BP 145/77
[2018-02-27] MEDS: IPRATROPIUM BROMIDE 0.5 MG/2.5 ML NEB SOLUTION NEB SCH ×6 (03:00→23:00)
[2018-02-27 04:00] VITALS: BP 143/77
[2018-02-27 06:08] LABS: BASOPHILS % (AUTO) 1.1 % (0.0-2.0); HEMOGLOBIN 11.5 g/dL (13.5-17.5); LYMPHOCYTES # (AUTO) 1.4 K/uL (1.0-4.8); LYMPHOCYTES % (AUTO) 19.7 % (22.0-44.0); MEAN CORPUSCULAR HEMOGLOBIN 33.1 pg (26.0-34.0); MEAN CORPUSCULAR HGB CONC 33.9 G/dL (31.0-37.0); MEAN CORPUSCULAR VOLUME 97 fL (80-100); MONOCYTES # (AUTO) 0.7 K/uL (0.1-1.0); MONOCYTES % (AUTO) 10.2 % (2.0-9.0); NEUTROPHILS # (AUTO) 4.6 K/uL (1.8-7.7); PLATELET COUNT (AUTO) 310 K/uL (150-450); RED BLOOD CELL COUNT(AUTO) 3.49 MIL/uL (4.50-5.90)
[2018-02-27 06:25] LABS: ANION GAP 9 mmol/L (8-16); CALCIUM, TOTAL 7.2 mg/dL (8.8-10.5); CARBON DIOXIDE 23 mmol/L (22-29); CHLORIDE 109 mmol/L (98-107); GLOMERULAR FILTR. RATE CALC > 60 mL/min (>60); GLUCOSE,RANDOM 79 mg/dL (70-110); SODIUM SERUM 141 mmol/L (136-145); UREA NITROGEN, BLOOD 6 mg/dL (7-18)
[2018-02-27] MEDS: HEPARIN SODIUM,PORCINE 5,000 UNITS/ML VIAL IVP PRN (06:48)
[2018-02-27 06:54] LABS: POTASSIUM 2.7 mmol/L (3.5-5.1)
[2018-02-27] MEDS: POTASSIUM CHL 10 MEQ/WATER 50 ML IV PRN ×4 (06:59→10:24)
[2018-02-27] MEDS: ACETYLCYSTEINE 10% 100 MG/ML 4 ML NEB SOLUTION NEB SCH ×3 (07:53→21:00)
[2018-02-27] MEDS: DOCUSATE SODIUM 100 MG CAPSULE PO SCH ×2 (07:59→21:00)
[2018-02-27] MEDS: DULoxetine HCL 60 MG CAPSULE PO SCH (07:59)
[2018-02-27] MEDS: PANTOPRAZOLE SODIUM 40 MG/VIAL IVP SCH (07:59)
[2018-02-27] MEDS: ELVITEG/COB/EMTRI/TENOF ALAFEN 150-150-200-10MG TABLET PO SCH (07:59)
[2018-02-27] MEDS: MULTIVITAMINS WITH MINERALS, THERAPEUTIC TABLET PO SCH (08:00)
[2018-02-27 09:57] VITALS: BP 159/90
[2018-02-27] MEDS: DEXTROSE 5%-0.45% SODIUM CHL 1,000 ML IV SCH (10:24)
[2018-02-27] MEDS ORDERED: MAGNESIUM SULFATE 1 GM in DEXTROSE 5%-WATER 50 ML IV ONE (11:15)
[2018-02-27] MEDS: APIXABAN 5 MG TABLET PO SCH ×2 (11:20→21:14)
[2018-02-27 16:39] VITALS: BP 135/79
[2018-02-27] MEDS: CefTRIAXone SODIUM 2 GM in DEXTROSE 5%-WATER 20 ML IV SCH (17:24)
[2018-02-27 19:23] VITALS: BP 115/74
[2018-02-27 23:47] VITALS: BP 122/75
[2018-02-28] MEDS: DEXTROSE 5%-0.45% SODIUM CHL 1,000 ML IV SCH ×2 (00:20→13:58)
[2018-02-28] MEDS: IPRATROPIUM BROMIDE 0.5 MG/2.5 ML NEB SOLUTION NEB SCH ×6 (03:00→23:00)
[2018-02-28 04:34] VITALS: BP 103/72
[2018-02-28] MEDS: APIXABAN 5 MG TABLET PO SCH ×2 (08:45→20:58)
[2018-02-28] MEDS: ELVITEG/COB/EMTRI/TENOF ALAFEN 150-150-200-10MG TABLET PO SCH (08:45)
[2018-02-28] MEDS: ACETYLCYSTEINE 10% 100 MG/ML 4 ML NEB SOLUTION NEB SCH ×3 (09:00→21:00)
[2018-02-28 11:44] VITALS: BP 97/69
[2018-02-28] MEDS: DULoxetine HCL 60 MG CAPSULE PO SCH (16:30)
[2018-02-28] MEDS: DOCUSATE SODIUM 100 MG CAPSULE PO SCH ×2 (16:30→20:18)
[2018-02-28] MEDS: MULTIVITAMINS WITH MINERALS, THERAPEUTIC TABLET PO SCH (16:30)
[2018-02-28] MEDS: PANTOPRAZOLE SODIUM 40 MG/VIAL IVP SCH (16:30)
[2018-02-28 19:25] VITALS: BP 108/78
[2018-03-01 00:08] VITALS: BP 107/62
[2018-03-01] MEDS: IPRATROPIUM BROMIDE 0.5 MG/2.5 ML NEB SOLUTION NEB SCH ×4 (03:00→14:50)
[2018-03-01 04:12] VITALS: BP 121/69
[2018-03-01] MEDS: APIXABAN 5 MG TABLET PO SCH (09:00)
[2018-03-01] MEDS: DULoxetine HCL 60 MG CAPSULE PO SCH (09:00)
[2018-03-01] MEDS: MULTIVITAMINS WITH MINERALS, THERAPEUTIC TABLET PO SCH (09:00)
[2018-03-01] MEDS: ACETYLCYSTEINE 10% 100 MG/ML 4 ML NEB SOLUTION NEB SCH ×2 (09:00→16:00)
[2018-03-01] MEDS: DOCUSATE SODIUM 100 MG CAPSULE PO SCH (09:00)
[2018-03-01] MEDS: PANTOPRAZOLE SODIUM 40 MG/VIAL IVP SCH (09:00)
[2018-03-01] MEDS: ELVITEG/COB/EMTRI/TENOF ALAFEN 150-150-200-10MG TABLET PO SCH (09:14)
[2018-03-01 11:57] LABS: BASOPHILS % (AUTO) 0.5 % (0.0-2.0); HEMATOCRIT 40.6 % (41-53); LYMPHOCYTES # (AUTO) 1.7 K/uL (1.0-4.8); LYMPHOCYTES % (AUTO) 23.6 % (22.0-44.0); MEAN CORPUSCULAR HEMOGLOBIN 33.1 pg (26.0-34.0); MEAN CORPUSCULAR HGB CONC 34.4 G/dL (31.0-37.0); MEAN CORPUSCULAR VOLUME 96 fL (80-100); MONOCYTES # (AUTO) 0.7 K/uL (0.1-1.0); NEUTROPHILS # (AUTO) 4.6 K/uL (1.8-7.7); NEUTROPHILS % (AUTO) 63.9 % (40.0-70.0); PLATELET COUNT (AUTO) 367 K/uL (150-450); RED BLOOD CELL COUNT(AUTO) 4.22 MIL/uL (4.50-5.90); RED CELL DISTRIBUTION WIDTH 14.9 % (11.5-14.5)
[2018-03-01 12:14] LABS: PLATELET MORPHOLOGY COMMENT GIANT PLTS PRESENT
[2018-03-01 12:17] LABS: ANION GAP 10 mmol/L (8-16); CARBON DIOXIDE 27 mmol/L (22-29); CHLORIDE 103 mmol/L (98-107); CREATININE 0.91 mg/dL (0.60-1.30); GLOMERULAR FILTR. RATE CALC > 60 mL/min (>60); GLUCOSE,RANDOM 93 mg/dL (70-110); POTASSIUM 3.5 mmol/L (3.5-5.1); SODIUM SERUM 140 mmol/L (136-145); UREA NITROGEN, BLOOD 13 mg/dL (7-18)
[2018-03-01 12:22] LABS: ALANINE AMINOTRANSFERASE 32 U/L (12-78); ALBUMIN 2.2 g/dL (3.4-5.0); ALKALINE PHOSPHATASE 67 U/L (46-116); ASPARTATE AMINOTRANSFERASE 24 U/L (15-37); BILIRUBIN,TOTAL 0.3 mg/dL (0.1-1.0); TOTAL PROTEIN, SERUM 8.3 g/dL (6.4-8.2)
[2018-03-01 12:25] VITALS: BP 100/68
[2018-03-01] MEDS ORDERED: APIX5TAB PO (15:00)
[2018-03-01] MEDS ORDERED: PANT40TA25 PO (15:04)
[2018-03-01] MEDS ORDERED: IPRNEB IH (15:04)
[2018-03-01 17:04] VITALS: BP 120/58
== END 2018-03-01 18:40 | DRG 853 ==
LOC: EMS 04:19 → ICU 06:21 → 5S 02-21 15:15
PROVIDERS: ADMIT Internal Medicine; ATTEND Internal Medicine
PROC: 5A1955Z Respiratory Ventilation, Greater than 96 Consecutive Hours (ICD-10-PCS; principal; 2018-02-13)
PROC: 0BH17EZ Insertion of Endotracheal Airway into Trachea, Via Natural or Artificial Opening (ICD-10-PCS; 2018-02-13)
PROC: 5A09357 Assistance with Respiratory Ventilation, Less than 24 Consecutive Hours, Continuous Positive Airway Pressure (ICD-10-PCS; 2018-02-13)
PROC: 047K3Z1 Dilation of Right Femoral Artery using Drug-Coated Balloon, Percutaneous Approach (ICD-10-PCS; 2018-02-14)
PROC: 3E05317 Introduction of Other Thrombolytic into Peripheral Artery, Percutaneous Approach (ICD-10-PCS; 2018-02-14)
PROC: 047T3Z1 Dilation of Right Peroneal Artery using Drug-Coated Balloon, Percutaneous Approach (ICD-10-PCS; 2018-02-15)
PROC: 3E05317 Introduction of Other Thrombolytic into Peripheral Artery, Percutaneous Approach (ICD-10-PCS; 2018-02-15)
PROC: B41F1ZZ Fluoroscopy of Right Lower Extremity Arteries using Low Osmolar Contrast (ICD-10-PCS; 2018-02-16)
DX: A41.9 Sepsis, unspecified organism (principal); J96.00 Acute respiratory failure, unspecified whether with hypoxia or hypercapnia; E43 Unspecified severe protein-calorie malnutrition; J15.4 Pneumonia due to other streptococci; G93.41 Metabolic encephalopathy; N17.9 Acute kidney failure, unspecified; I74.3 Embolism and thrombosis of arteries of the lower extremities; J96.01 Acute respiratory failure with hypoxia; E87.2 Acidosis; L97.519 Non-pressure chronic ulcer of other part of right foot with unspecified severity; R64 Cachexia; J44.0 Chronic obstructive pulmonary disease with (acute) lower respiratory infection; N30.91 Cystitis, unspecified with hematuria; B95.3 Streptococcus pneumoniae as the cause of diseases classified elsewhere; E87.6 Hypokalemia; F32.9 Major depressive disorder, single episode, unspecified; I51.3 Intracardiac thrombosis, not elsewhere classified; I70.201 Unspecified atherosclerosis of native arteries of extremities, right leg; N18.9 Chronic kidney disease, unspecified; F43.21 Adjustment disorder with depressed mood; N28.1 Cyst of kidney, acquired; B96.20 Unspecified Escherichia coli [E. coli] as the cause of diseases classified elsewhere; R62.7 Adult failure to thrive; Z79.899 Other long term (current) drug therapy; Z87.891 Personal history of nicotine dependence; Z88.0 Allergy status to penicillin; Z28.21 Immunization not carried out because of patient refusal; Z88.2 Allergy status to sulfonamides
CPT/HCPCS: 31500; 36245; 36569; 36593; 70450; 71250; 76770; 76937; 82271; 82805; 82947; 82962; 83605; 83735; 84100; 84132; 84145; 84443; 85384; 87040; 87070; 87081; 87086; 87147; 87205; 87804; 92526; 92610; 93005; 93306; 93925; 93970; 94003; 94640; 94660; 96361; 96365; 96367; 99291; C9113; J0692; J0696; J1644; J1956; J2250; J2370; J2704; J2997; J3010; J3370; J3475; J3480; J3490; J7030; J7040; J7050; J7060; Q9967